=== PATIENT | male | born 1990 | race Caucasian/White ===

== ENCOUNTER 2019-07-21 16:58 | Emergency (ER) | payer BC, OTHER ==
[~2019-07-21] VITALS: Ht 193 cm; Wt 115.4 kg
[2019-07-21] MEDS ORDERED: ONDANSETRON 2MG/ML, 2ML IVPush ONE (17:30)
[2019-07-21] MEDS ORDERED: SODIUM CHLORIDE 0.9% 1,000ML IVBOLUS ONE (17:30)
[2019-07-21] MEDS ORDERED: SODIUM CHLORIDE FLUSH 10ML SYR IVF ONE (17:30)
[2019-07-21] MEDS ORDERED: MULT-257 PO (17:30)
[2019-07-21] MEDS ORDERED: OMEG1CAP23 PO (17:31)
[2019-07-21] MEDS ORDERED: HYDROmorphone 1 MG/ML, 1ML INJ ONE ×2 (17:56→18:50)
[2019-07-21] MEDS ORDERED: ONDANSETRON 2MG/ML, 2ML ONE (17:56)
[2019-07-21] MEDS: HYDROmorphone 2 MG/ML, 1ML IVPush PRN ×2 (18:01→18:54)
[2019-07-21 18:08] LABS: EOSINOPHILS % (AUTO) 1 % (1-7); MD NO; NEUTROPHILS % (AUTO) 72 % (42-75)
[2019-07-21 18:17] LABS: ALANINE AMINOTRANSFERASE 44 U/L (12-78); ALBUMIN 4.4 g/dL (3.4-5.0); ANION GAP 5 mmol/L (5-15); CALCIUM 9.1 mg/dL (8.5-10.1); CHLORIDE 107 mmol/L (98-107)
[2019-07-21 18:19] LABS: ALKALINE PHOSPHATASE 48 U/L (45-117); BILIRUBIN,TOTAL 0.8 mg/dL (0.2-1.0); TOTAL PROTEIN 7.9 g/dL (6.4-8.2)
--- NOTE | 2019-07-21 18:55 | NUR ---
Report from Gabo RN Pt alert and resting on gurney. Pt reporting return of pain after US. Second dose of dilaudid given. Pt on pulse ox/HR monitor.
[2019-07-21 19:12] LABS: MICROSCOPIC NOT IND
[2019-07-21 19:14] LABS: CULTURE INDICATED? NO
[2019-07-21 19:43] LABS: BASOPHILS # (AUTO) 0.04 x10^3/uL (0-0.1); BASOPHILS % (AUTO) 0 % (0-1); EOSINOPHILS # (AUTO) 0.08 x10^3/uL (0-0.4); LYMPHOCYTES # (AUTO) 1.91 x10^3/uL (1-3.4); LYMPHOCYTES % (AUTO) 20 % (22-44); MEAN CORPUSCULAR HGB CONC 34.2 g/dL (33.2-36.2); MEAN CORPUSCULAR VOLUME 96.5 fL (81-97); MONOCYTES # (AUTO) 0.68 x10^3/uL (0.2-0.8); MONOCYTES % (AUTO) 7 % (2-9); NEUTROPHILS # (AUTO) 7.06 x10^3/uL (1.8-6.8); PLATELET COUNT 171 x10^3/uL (130-400); RED BLOOD COUNT 4.96 x10^6/uL (4.38-5.82)
--- NOTE | 2019-07-21 19:48 | NUR ---
Pt reports improvement in pain after second dilaudid dose. No needs at this time.
--- NOTE | 2019-07-21 20:27 | NUR ---
Pt alert and resting on gurney. Pt aware of CT and denies needs at this time.
--- NOTE | 2019-07-21 21:10 | NUR ---
Pt to CT.
[2019-07-21] MEDS ORDERED: OMNIPAQUE 350 MG/ML, 100ML BOTTLE ONE (21:13)
--- NOTE | 2019-07-21 21:19 | NUR ---
Pt requesting pain meds. Spoke with MD. Plan to hold pain meds until CT report comes back. Pt updated. Pt agreeable. No needs at this time.
[2019-07-21] MEDS ORDERED: KETOROLAC 30 MG/1 ML IV ONE (22:00)
[2019-07-21] MEDS ORDERED: KETOROLAC 30 MG/1 ML ONE (22:14)
--- NOTE | 2019-07-21 22:15 | NUR ---
Pt dc'd to home care. Pt alert and oriented. NAD. Education provided including home care, medications, and follow-up. Pt VU. Pt ambulated out of ER.
[2019-07-21 22:40] VITALS: BP 128/73
== END 2019-07-21 22:42 | disposition home or self-care (01) ==
LOC: ED 20:45
DX: R10.11 Right upper quadrant pain (principal)
CPT/HCPCS: 36415; 71045; 74177; 76700; 80053; 81003; 83690; 85025; 85379; 93005; 96374; 96375; 96376; 99284; J1170; J1885; J2405; J7030; Q9967

== ENCOUNTER 2019-09-11 13:23 | Outpatient (CLI) | payer OTHER ==
[~2019-09-11 13:23] MED LIST: MULT-257 PO; OMEG1CAP23 PO
[2019-09-11] MEDS ORDERED: SINCALIDE (KINEVAC) 5 MCG ONE (14:24)
== END 2019-09-11 23:59 | disposition home or self-care (01) ==
LOC: RAD 13:23
PROVIDERS: ATTEND Nurse Practitioner
DX: R10.11 Right upper quadrant pain (principal)
CPT/HCPCS: 78227; A9537; J2805